=== PATIENT | female | born 1985 | race Caucasian/White ===

== ENCOUNTER → 2016-10-26 | Outpatient (REF) ==
[~2016-10-26] MED LIST: MOTRIN 600600 MG/TAB PO; PERCOCET 325 MG1 TA2 PO; PRENATAL1 TA1 PO; PRENATAL1 TA7 PO; TAMIFLU 75MG75 MG PO; TUMS ULTRA1000 MG PO
== END ==
LOC: WSPT 08:56
DX: Z01.89 Encounter for other specified special examinations (principal)

== ENCOUNTER → 2016-10-26 | Outpatient (REF) | LOC: WSOH 09:59 | DX: Z01.89 Encounter for other specified special examinations (principal) ==

== ENCOUNTER → 2017-01-12 | Outpatient (REF) | LOC: WSOH 16:16 | DX: Z02.89 Encounter for other administrative examinations (principal) ==

== ENCOUNTER → 2017-03-03 | Outpatient (CLI) | payer OTHER | LOC: BHSO 10:51 | DX: F33.41 Major depressive disorder, recurrent, in partial remission (principal) | CPT/HCPCS: 90791-AI ==

== ENCOUNTER → 2017-05-03 | Outpatient (CLI) | payer OTHER | LOC: BHSO 15:35 | DX: F33.42 Major depressive disorder, recurrent, in full remission (principal) ==

== ENCOUNTER → 2017-07-05 | Outpatient (CLI) | payer OTHER | LOC: BHSO 09:17 | DX: F33.41 Major depressive disorder, recurrent, in partial remission (principal) | CPT/HCPCS: G0463 ==

== ENCOUNTER → 2017-09-23 | Outpatient (CLI) | payer OTHER | LOC: BHSO 08:53 | DX: F33.42 Major depressive disorder, recurrent, in full remission (principal) | CPT/HCPCS: G0463 ==

== ENCOUNTER → 2017-12-19 | Outpatient (CLI) | payer OTHER ==
[2017-12-19 07:46] LABS: COLLECTION METHOD CLEAN CATCH
[2017-12-19 07:53] LABS: BASO % 0.6 % (0.0-2.0); EOS # 0.1 (0.0-0.7); EOS % 1.3 % (0-4.0); GRAN # 3.8 (1.4-6.5); GRAN % 54.4 % (42.2-75.2); HEMATOCRIT 42.4 % (37.0-47.0); HEMOGLOBIN 13.8 g/dl (12.5-16.0); LYMPH # 2.5 (1.2-3.4); LYMPH % 35.6 % (20.0-51.0); MEAN CELL VOLUME 91 fl (80.0-100.0); MEAN CORPUSCULAR HEMOGLOBIN 30 pg (27.0-31.0); MEAN CORPUSCULAR HGB CONC 33 g/dl (33.0-37.0); MEAN PLATELET VOLUME 9.1 fl (7.4-10.4); MONO # 0.6 (0.1-0.6); MONO % 7.8 % (1.7-9.3); PLATELET COUNT 365 K/mm3 (130-400); RED BLOOD COUNT 4.65 M/mm3 (4.10-5.30); REDCELL DISTRIBUTION WIDTH-CV 12.5 % (11.5-14.5)
[2017-12-19 07:59] LABS: MUCOUS Present /lpf; PH 5 (5-8); SQUAMOUS EPITHELIAL 0-2 /hpf; URINE APPEARANCE Clear; URINE BACTERIA None Seen /hpf; URINE BILIRUBIN Negative (NEGATIVE); URINE BLOOD 2+ (NEGATIVE); URINE COLOR Yellow; URINE GLUCOSE Negative (NEGATIVE); URINE KETONE Negative (NEGATIVE); URINE LEUKOCYTE ESTERASE Negative (NEGATIVE); URINE NITRATE Negative (NEGATIVE); URINE PROTEIN(semi-quant) Negative (NEGATIVE); URINE UROBILINOGEN Negative (NEGATIVE)
[2017-12-19 08:04] LABS: ALBUMIN 4.2 gm/dL (3.5-5.0); BILIRUBIN,TOTAL 0.2 mg/dL (0.0-1.0); CALCIUM 8.8 mg/dL (8.4-10.2); CHOLESTEROL RISK RATIO 3.3; CREATININE, serum 0.7 mg/dL (0.52-1.25); POTASSIUM 4.2 mmol/L (3.4-5.0); TOTAL PROTEIN 7.5 gm/dL (6.4-8.2)
[2017-12-19 08:33] LABS: TSH w REFLEX 2.81 uIU/mL (0.465-4.680)
== END ==
LOC: COL.LAB 07:19
PROVIDERS: Family Medicine
DX: K21.9 Gastro-esophageal reflux disease without esophagitis (principal)

== ENCOUNTER → 2018-03-28 | Outpatient (CLI) | payer OTHER | LOC: BHSO 14:00 | DX: F33.42 Major depressive disorder, recurrent, in full remission (principal) | CPT/HCPCS: G0463 ==

== ENCOUNTER → 2018-09-21 | Outpatient (CLI) | payer OTHER | LOC: BHSO 08:37 | DX: F33.42 Major depressive disorder, recurrent, in full remission (principal) | CPT/HCPCS: G0463 ==

== ENCOUNTER → 2019-03-20 | Outpatient (CLI) | payer OTHER | LOC: BHSO 14:14 | DX: F33.42 Major depressive disorder, recurrent, in full remission (principal) | CPT/HCPCS: G0463 ==

== ENCOUNTER 2020-05-20 14:51 | Emergency (ER) | payer OTHER ==
[~2020-05-20] VITALS: Ht 160 cm; Wt 69.1 kg
[2020-05-20 15:45] LABS: BASO % 0.2 % (0.0-2.0); EOS % 0.2 % (0-4.0); GRAN # 9.7 (1.4-6.5); GRAN % 77.5 % (42.2-75.2); HEMATOCRIT 38.7 % (37.0-47.0); HEMOGLOBIN 12.9 g/dl (12.5-16.0); LYMPH # 1.7 (1.2-3.4); LYMPH % 13.4 % (20.0-51.0); MEAN CELL VOLUME 90 fl (80.0-100.0); MEAN CORPUSCULAR HEMOGLOBIN 30 pg (27.0-31.0); MEAN CORPUSCULAR HGB CONC 33 g/dl (33.0-37.0); MEAN PLATELET VOLUME 9.2 fl (7.4-10.4); MONO # 1.1 (0.1-0.6); MONO % 8.5 % (1.7-9.3); PLATELET COUNT 296 K/mm3 (130-400); RED BLOOD COUNT 4.28 M/mm3 (4.10-5.30); REDCELL DISTRIBUTION WIDTH-CV 12.3 % (11.5-14.5)
[2020-05-20 15:57] LABS: ALBUMIN 4.2 gm/dL (3.5-5.0); BILIRUBIN,TOTAL 0.5 mg/dL (0.0-1.0); C-REACTIVE PROTEIN 7.8 mg/dL (0.0-0.9); CALCIUM 9.1 mg/dL (8.4-10.2); CREATININE, serum 0.88 (0.52-1.25); TOTAL PROTEIN 7.6 gm/dL (6.4-8.2)
[2020-05-20 16:01] LABS: COLLECTION METHOD CLEAN CATCH
[2020-05-20 16:18] LABS: MUCOUS Present /lpf; PH 6 (5-8); SQUAMOUS EPITHELIAL None Seen /hpf; URINE APPEARANCE Cloudy; URINE BACTERIA Moderate /hpf; URINE BILIRUBIN Negative (NEGATIVE); URINE BLOOD 2+ (NEGATIVE); URINE COLOR Yellow; URINE GLUCOSE Negative (NEGATIVE); URINE KETONE Negative (NEGATIVE); URINE LEUKOCYTE ESTERASE 3+ (NEGATIVE); URINE NITRATE Positive (NEGATIVE); URINE PROTEIN(semi-quant) 2+ (NEGATIVE); URINE UROBILINOGEN Negative (NEGATIVE)
[2020-05-20] MEDS ORDERED: CIPRO 500MG TA500 MG PO (17:10)
[2020-05-20 21:07] VITALS: TEMP 99.6
[2020-05-20 21:54] VITALS: BP 107/72; PULSE 124
== END 2020-05-20 22:15 | disposition home or self-care (01) ==
LOC: COL.ER 14:51
PROVIDERS: Nurse Practitioner Primary Care
DX: N12 Tubulo-interstitial nephritis, not specified as acute or chronic (principal); U07.1 COVID-19; Z91.011 Allergy to milk products
CPT/HCPCS: J0696; J1885; J2060; J2270; J7030; J7040; Q9967

== ENCOUNTER → 2020-05-30 | Outpatient (REF) ==
[~2020-05-30] MED LIST changes: +CIPRO 500MG TA500 MG PO
== END ==
LOC: WSOH 13:01
DX: U07.1 COVID-19 (principal)
CPT/HCPCS: G0463

== ENCOUNTER → 2021-09-30 | Outpatient (CLI) | payer OTHER ==
[2021-09-30 12:05] LABS: CHOLESTEROL RISK RATIO 2.9
== END ==
LOC: COL.LAB 11:31
DX: R73.01 Impaired fasting glucose (principal)

== ENCOUNTER → 2022-03-09 | Outpatient (CLI) | payer OTHER | LOC: COL.LAB 07:53 | DX: R00.0 Tachycardia, unspecified (principal) ==